=== PATIENT | female | born 1935 | race Caucasian/White ===

== ENCOUNTER 2017-05-12 08:07 | Day surgery (SDC) | payer OTHER ==
[2017-05-12] VITALS (8 sets, daily range): BP systolic 100–134; BP diastolic 52–94
[~2017-05-12] VITALS: Ht 172.7 cm; Wt 81.1 kg
[~2017-05-12 08:07] MED LIST: LIDOcaine 1% 30ml preserv. free vial SQ STA
[2017-05-12] MEDS ORDERED: POTA10TA19 PO (09:04)
[2017-05-12] MEDS ORDERED: HYDR12.5 PO (09:04)
[2017-05-12] MEDS ORDERED: MONT10TA24 PO (09:04)
[2017-05-12] MEDS ORDERED: MELO-102 PO (09:04)
[2017-05-12] MEDS ORDERED: FURO-150 PO (09:04)
[2017-05-12] MEDS ORDERED: LOSA100T28 PO (09:04)
[2017-05-12] MEDS ORDERED: ATEN1TAB4 PO (09:04)
[2017-05-12] MEDS ORDERED: LIDOcaine 1% (10mg/ml) 2ml vial SQ STA (09:09)
[2017-05-12] MEDS ORDERED: LIDOcaine 1% 30ml preserv. free vial SQ STA (09:10)
[2017-05-12 12:20] LABS: TOTAL PROTEIN,BODY FLUID 4.2 G/DL; TOTAL PROTEIN,BODY FLUID 4.3 G/DL
== END 2017-05-12 11:10 | disposition home or self-care (01) ==
LOC: SSTAY O 08:07
PROVIDERS: ATTEND Radiology Diagnostic Radiology
DX: J90 Pleural effusion, not elsewhere classified (principal); D72.820 Lymphocytosis (symptomatic); E78.5 Hyperlipidemia, unspecified; I12.9 Hypertensive chronic kidney disease with stage 1 through stage 4 chronic kidney disease, or unspecified chronic kidney disease; N18.3 Chronic kidney disease, stage 3 (moderate); E83.52 Hypercalcemia; Z85.43 Personal history of malignant neoplasm of ovary; Z79.899 Other long term (current) drug therapy; Z98.890 Other specified postprocedural states; Z90.710 Acquired absence of both cervix and uterus
CPT/HCPCS: 32555; 71045; 82945; 83615; 84157; J3490; A6258